=== PATIENT | male | born 1960 | race Caucasian/White ===

== ENCOUNTER 2016-03-30 09:08 | Emergency (ER) | payer BC ==
[2016-03-30 09:28] VITALS: BP 107/75
--- NOTE | 2016-03-30 11:23 | UC ---
Respiratory Complaint HPI - HPI Summary HPI Summary: pt c/o generalized malaise, fatigue, "burning cough" chills X 3 days. Pt did not get flu vaccine this year - History of Current Complaint Chief Complaint: UCRespiratory Stated Complaint: FEVER,COUGH,ACHY Time Seen by Provider: 03/30/16 10:33 Hx Obtained From: Patient Onset/Duration: Gradual Onset, Lasting Days Timing: Constant Severity Initially: Mild Severity Currently: Mild Pain Intensity: 7 Pain Scale Used: 0-10 Numeric Character: Cough: Nonproductive Aggravating Factors: Recumbent Position Associated Signs And Symptoms: Positive: Chills, URI - Allergies/Home Medications Allergies/Adverse Reactions: Allergies Allergy/AdvReac Type Severity Reaction Status Date / Time Penicillins Allergy Unknown Verified 03/30/16 09:22 Reaction Details Home Medications: Home Medications Ibuprofen TAB* [Advil TAB*] 400 mg PO Q6H PRN 03/30/16 [History Confirmed ] Sertraline* [Zoloft*] 25 mg PO DAILY 03/30/16 [History Confirmed 03/30/16] PMH/Surg Hx/FS Hx/Imm Hx Previously Healthy: Yes - Surgical History Surgical History: Yes Surgery Procedure, Year, and Place: Bilateral Leg Surgeries s/p Farming Accident , 1973, ; Herniorrhapies - Family History Known Family History: Positive: Other - Denies FMh of Bronchitis - Social History Occupation: Employed Full-time Lives: With Family Alcohol Use: Occasionally Substance Use Type: None Smoking Status (MU): Heavy Every Day Tobacco Smoker Type: Cigarettes, Smokeless Tobacco Amount Used/How Often: 1 can per day Length of Time of Smoking/Using Tobacco: 27 Years Cigarettes, 13 Years Smokeless Tobacco Have You Smoked in the Last Year: Yes - Immunization History Most Recent Influenza Vaccination: Not the 2016/2016 Season Review of Systems Constitutional: Chills, Fatigue Skin: Negative Eyes: Negative ENT: Other - nasal congestion Respiratory: Cough Cardiovascular: Negative Gastrointestinal: Negative Genitourinary: Negative Motor: Negative Neurovascular: Negative Musculoskeletal: Negative Neurological: Negative Psychological: Negative All Other Systems Reviewed And Are Negative: Yes Physical Exam Triage Information Reviewed: Yes Appearance: Ill-Appearing Vital Signs: Initial Vital Signs Temp 99.7 F 03/30/16 09:19 Pulse 112 03/30/16 09:19 Resp 18 03/30/16 09:19 BP 107/75 03/30/16 09:19 Pulse Ox 99 03/30/16 09:19 Vital Signs Reviewed: Yes ENT Exam: Other ENT: Positive: Nasal congestion Neck exam: Normal Respiratory Exam: Normal Cardiovascular Exam: Normal Musculoskeletal Exam: Normal Neurological Exam: Normal Psychological Exam: Normal Skin Exam: Normal UC Diagnostic Evaluation - Laboratory O2 Sat by Pulse Oximetry: 99 Respiratory Course/Dx - Differential Dx/Diagnosis Differential Diagnosis/HQI/PQRI: Bronchitis, Influenza Provider Diagnoses: Bronchitis Discharge - Discharge Plan Condition: Stable Disposition: HOME Prescriptions: Azithromycin TAB* [Zithromax TAB (Z-ARVIN) 250 mg #6 tabs] 2 tab PO .TODAY, THEN 1 DAILY #1 arvin Patient Education Materials: Acute Bronchitis (ED) Referrals: Tyler Beaulieu MD [Primary Care Provider] -
== END 2016-03-30 10:52 | disposition home or self-care (01) ==
LOC: UCCORT 09:08
DX: J20.9 Acute bronchitis, unspecified (principal); R09.81 Nasal congestion; F17.210 Nicotine dependence, cigarettes, uncomplicated; Z88.0 Allergy status to penicillin
CPT/HCPCS: 87502; 99212; G0463

== ENCOUNTER 2018-12-14 07:30 | Day surgery (SDC) | payer BC ==
[~2018-12-14 07:30] MED LIST: Buffered Lidocaine 1% SYRIN* 1 ML/SYRINGE INTRADERM ONE; Lactated Ringers 1000 ML Bag* 1,000 ML IV SCH
[2018-12-14] MEDS ORDERED: ceFAZolin 2 GM PREMIX in ORs 2 GM/50 ML BAG ONE (08:11)
[2018-12-14] MEDS ORDERED: Buffered Lidocaine 1% SYRIN* 1 ML/SYRINGE INTRADERM ONE (08:11)
[2018-12-14] MEDS ORDERED: Scopolamine 1.5 mg* PATCH ONE (08:36)
[2018-12-14] MEDS ORDERED: Propofol* 10 MG/ML 20 ML BTL ONE ×2 (10:17→10:29)
[2018-12-14] MEDS ORDERED: Lidocaine 2% PF * 5 ML VIAL ONE ×2 (10:17)
[2018-12-14] MEDS ORDERED: Rocuronium* 10 MG/ML VIAL ONE (10:17)
[2018-12-14] MEDS ORDERED: Dexmedetomidine* 200 MCG/2 ML 2 ML VIAL ONE (10:18)
[2018-12-14] MEDS ORDERED: ROPIVACAINE 5 MG/ML 30 ML BTL (0.5%) ONE (10:18)
[2018-12-14] MEDS ORDERED: fentaNYL* 50 MCG/ML 2 ML VIAL (100 MCG VIAL) ONE (10:22)
[2018-12-14] MEDS ORDERED: Midazolam* 1 MG/ML 2 ML VIAL (2 MG) ONE (10:22)
[2018-12-14] MEDS ORDERED: Glycopyrrolate IV* 0.2 MG/ML 1 ML VIAL ONE ×2 (10:29→14:58)
[2018-12-14] MEDS ORDERED: Neostigmine Methylsulfate* 1 MG/ML 10 ML VIAL (1 mg/ml) ONE ×2 (10:29→14:58)
[2018-12-14] MEDS ORDERED: Ropivacaine 0.2% * 2 MG/ML VIAL ONE (11:24)
[2018-12-14] MEDS ORDERED: Dexamethasone IV* 4 MG/ML 1 ML (4 MG) ONE (12:12)
[2018-12-14] MEDS ORDERED: Metoclopramide IV* 5 MG/ML 2 ML VIAL ONE (12:12)
[2018-12-14] MEDS ORDERED: Ondansetron INJ* 2 MG/ML VIAL ONE (12:12)
[2018-12-14] MEDS ORDERED: Ketorolac INJ* 30 MG/ML 1 ML VIAL ONE (12:12)
[2018-12-14] MEDS ORDERED: DiMENhydriNATE IV* 50 MG/ML VIAL IV PUSH PRN (12:20)
[2018-12-14] MEDS ORDERED: oxyCODONE TAB* 5 MG TAB PO PRN (12:20)
[2018-12-14] MEDS ORDERED: HYDROmorphone INJ1* 1 MG/ML SYRINGE IV PRN (12:20)
[2018-12-14] MEDS ORDERED: Naloxone* 0.4 MG/ML 1 ML VIAL IV PRN (12:20)
[2018-12-14] MEDS ORDERED: Acetaminophen IV 1GM/100ML * 100 ML ONE (14:58)
[2018-12-14 15:52] VITALS: BP 139/79
--- NOTE | 2018-12-14 21:16 | OP ---
CC: PCP, Dr. Beaulieu * DATE OF OPERATION: 12/14/18 - [facility] DATE OF : 60 SURGEON: Jerry Carrizales MD. MOLD PRESSER: GEMA Steele. An head start assistant teacher was needed for the entirety of the case to help with positioning, retraction, and was utilized throughout all portions of the case. ANESTHESIOLOGIST: Dr. Macias. ANESTHESIA: General with interscalene block. PRE-OP DIAGNOSIS: Right shoulder high-grade partial-thickness tear of the rotator cuff versus small full-thickness tear of the rotator cuff with possible biceps tendinitis and impingement. POST-OP DIAGNOSIS: Partial-thickness tear of the rotator cuff with significant impingement and large acromion. OPERATIVE PROCEDURE: Right shoulder arthroscopy with: 1. Limited debridement. 2. Subacromial decompression with acromioplasty. 3. Rotator cuff repair with Regeneten patch for partial tear. IMPLANTS USED: Regeneten patch size medium. INDICATIONS: Kody Barker is a 58-year-old male who presents with persistent shoulder pain. He on an MRI demonstrated what was thought to be a small full- thickness tear of the rotator cuff. He has had persistent pain. After extensive discussion of the risks and benefits of operative versus nonoperative treatment, he has elected to proceed with surgical treatment. Risks included, but are not limited to, bleeding; infection; damage to nerves, vessels, surrounding structures; wound nonhealing; persistent pain; need for further surgery; scarring; stiffness; incomplete relief of symptoms; risks of anesthesia. DESCRIPTION OF PROCEDURE: The patient was greeted in the preoperative area by the attending surgeon. Correct extremity was marked and consent was confirmed. The patient underwent interscalene nerve block, after which he was brought back to the operating suite, placed in supine position on the operating table. He then underwent general anesthesia with endotracheal intubation, after which he was positioned in the left lateral decubitus position with an axillary roll. All bony prominences were padded. He was secured with a pegboard. The right shoulder was then draped unsterile with 10 pounds of traction. The right shoulder was then prepped and draped in the usual sterile fashion beginning with chlorhexidine soap, scrub, and alcohol wipe, and a final prep with ChloraPrep. After appropriate surgical pause indicating side, site, procedure, and administration of antibiotics, the standard posterolateral portal was then made using an 11-blade. The scope was brought into the joint, the joint was examined. The shoulder appeared to be very tight. We added about 5 pounds of traction to help to distract the joint, but it did not distract significantly. The undersurface of the rotator cuff looked great though, it looked intact. The biceps had some erythema, but it was grossly intact. The subscap was intact. Inferior recess was difficult to visualize. After the intraarticular portion was complete, attention was directed to the subacromial space. With the scope positioned in the subacromial space, the lateral portal was made in an outside-in fashion. There was a large, very large anterolateral hooked acromion that was present. This was debrided back carefully with a 4-0 oval bur. We required 2 burs because of how hard the bone was. The supraspinatus meanwhile was visualized and found to have partial-thickness tearing. There was no evidence of a full-thickness tear. Once the acromioplasty was complete, all fluid and debris were removed, the synovitis was removed, and the bursa was removed, attention was directed to the cuff. Decision was made to treat this with a Regeneten patch. The Regeneten patch was then brought into the field and a size medium was placed along the supraspinatus where the defect was. This was then secured medially with tendon mila and then laterally with bone mila. Final images were obtained. After the patch was placed, the wounds were copiously irrigated with sterile saline. The portals were closed with 3-0 nylon in interrupted fashion. Sterile dressings were applied. Cryo/Cuff and a regular sling were applied. He was awoken from anesthesia and transferred to the PACU in stable condition. POSTOPERATIVE PLAN: He will be nonweightbearing. He will be in a sling for 2 to 3 days. Discharged on pain medication. DVT prophylaxis was considered, but deferred due to no previous personal or family history. I will see the patient back in 10 to 14 days. [id number]/[facility] #: [id number] [place]
== END 2018-12-14 15:54 | disposition home or self-care (01) ==
LOC: OR 07:30
PROVIDERS: ATTEND Orthopaedic Surgery
DX: S46.011A Strain of muscle(s) and tendon(s) of the rotator cuff of right shoulder, initial encounter (principal); M75.41 Impingement syndrome of right shoulder; X50.0XXA Overexertion from strenuous movement or load, initial encounter; Y93.89 Activity, other specified; Y92.89 Other specified places as the place of occurrence of the external cause; G89.18 Other acute postprocedural pain; Z87.891 Personal history of nicotine dependence
CPT/HCPCS: A9270-GY; C1713; J0690; J1100; J1885; J2250; J2405; J2704; J2710; J2765; J2795; J3010